=== PATIENT | male | born 1960 | race Caucasian/White ===

== ENCOUNTER 2017-05-04 21:29 | Emergency (ER) | payer OTHER ==
[~2017-05-04] VITALS: Ht 177.8 cm; Wt 122.3 kg
[2017-05-04] MEDS ORDERED: KETOROLAC 30 MG/1 ML ONE (22:15)
[2017-05-04] MEDS ORDERED: PROCHLORPERAZINE 5 MG/ML, 2ML ONE (22:15)
[2017-05-04] MEDS ORDERED: DIPHENHYDRAMINE 50 MG/ML, 1ML ONE (22:16)
[2017-05-04] MEDS ORDERED: SODIUM CHLORIDE FLUSH 10ML SYR IVF ONE (22:30)
[2017-05-04] MEDS ORDERED: KETOROLAC 30 MG/1 ML IVPush ONE (22:30)
[2017-05-04] MEDS ORDERED: PROCHLORPERAZINE 5 MG/ML, 2ML IVPush ONE (22:30)
[2017-05-04] MEDS ORDERED: DIPHENHYDRAMINE 50 MG/ML, 1ML IVPush ONE (22:30)
[2017-05-04] MEDS ORDERED: SODIUM CHLORIDE 0.9% 1,000ML IVBOLUS ONE (22:30)
[2017-05-04 22:42] LABS: HEMATOCRIT 44.9 % (39.2-51.8); HEMOGLOBIN 15.5 g/dL (13.7-18.0); WHITE BLOOD COUNT 15.6 x10^3/uL (3.4-10)
[2017-05-04 22:54] LABS: ASPARTATE AMINO TRANSFERASE 20 U/L (15-37); BLOOD UREA NITROGEN 16 mg/dL (7-18)
[2017-05-04 22:59] LABS: IS PT STATUS REG ER OR PRE ER? YES
[2017-05-05 00:22] VITALS: BP 122/76
== END 2017-05-05 00:47 | disposition home or self-care (01) ==
LOC: ED 23:59
DX: G43.C0 Periodic headache syndromes in child or adult, not intractable (principal); H93.11 Tinnitus, right ear; D72.829 Elevated white blood cell count, unspecified; F17.200 Nicotine dependence, unspecified, uncomplicated; Z79.899 Other long term (current) drug therapy
CPT/HCPCS: 36415; 70450; 74022; 80053; 81003; 83690; 84484; 85025; 93005; 96361; 96374; 96375; 99285; J0780; J1200; J1885; J7030